=== PATIENT | male | born 1995 | race Caucasian/White ===

== ENCOUNTER 2024-08-09 11:22 | Emergency (ER) | payer MEDICARE ==
[~2024-08-09] VITALS: Ht 188 cm; Wt 79.4 kg
[2024-08-09 11:43] LABS: BASOPHILS % (AUTO) 0.7 % (0.0-2.0); EOSINOPHILS # (AUTO) 0.2 K/uL (0.0-0.7); EOSINOPHILS % (AUTO) 3.4 % (0.0-7.0); HEMATOCRIT 40.6 % (36.7-47.1); LYMPHOCYTES # (AUTO) 2.1 K/uL (0.8-4.8); MEAN CORPUSCULAR HEMOGLOBIN 31.5 uug (23.8-33.4); MEAN CORPUSCULAR HGB CONC 35 g/dL (32.5-36.3); MONOCYTES # (AUTO) 0.3 K/uL (0.1-1.30); MONOCYTES % (AUTO) 4.9 % (0.0-11.0); NEUTROPHILS # (AUTO) 3.6 K/uL (1.8-8.9); PLATELET COUNT (AUTO) 257 K/uL (152-348); RED BLOOD CELL COUNT(AUTO) 4.46 MIL/uL (4.06-5.63); RED CELL DISTRIBUTION WIDTH 13.1 % (12.1-16.2); WHITE BLOOD COUNT (AUTO) 6.3 K/uL (3.6-10.2)
[2024-08-09 11:46] LABS: DIFFERENTIAL COMMENT 1
[2024-08-09] MEDS ORDERED: LIDOCAINE 2%-EPI 1:100,000 20 ML VIAL ONE (11:54)
[2024-08-09] MEDS ORDERED: LIDOCAINE 1%-EPI 1:100,000 20 ML VIAL ONE (11:55)
[2024-08-09 11:56] LABS: ALANINE AMINOTRANSFERASE 23 U/L (16-63); ALBUMIN 4.2 g/dL (3.4-5.0); ALKALINE PHOSPHATASE 53 U/L (50-136); ASPARTATE AMINOTRANSFERASE 5 U/L (15-37); BILIRUBIN,DIRECT 0.1 mg/dL (0.0-0.2); BILIRUBIN,TOTAL 0.5 mg/dL (0.2-1.0); CALCIUM 8.9 mg/dL (8.5-10.1); CARBON DIOXIDE 28 mmol/L (21-32); CHLORIDE 105 mmol/L (98-107); CREATININE 1.2 mg/dL (0.6-1.3); GLUCOSE 170 mg/dL (74-106); POTASSIUM 3.9 mmol/L (3.5-5.1); SODIUM SERUM 143 mmol/L (136-145); TOTAL PROTEIN, SERUM 7.2 g/dL (6.4-8.2); UREA NITROGEN, BLOOD 14 mg/dL (7-18)
[2024-08-09 12:00] LABS: ETHANOL < 3 MG/DL (0-10)
[2024-08-09] MEDS: LIDOCAINE 1%-EPI 1:100,000 20 ML VIAL IJ ONE (12:32)
[2024-08-09 12:56] LABS: *BILIRUBIN,URIN NEGATIVE (NEGATIVE); *BLOOD, URINE NEGATIVE (NEGATIVE); *CLARITY,URINE CLEAR (CLEAR); *COLOR,URINE YELLOW (YELLOW); *KETONES,URINE NEGATIVE (NEGATIVE); *PROTEIN,URINE NEGATIVE (NEGATIVE); *UROBILINOGEN,URINE 0.2 E.U./dl (NORMAL); LEUKOCYTE ESTERASE ,URINE NEGATIVE (NEGATIVE); NITRITE, URINE NEGATIVE (NEGATIVE); PH,URINE 6.5 (5.0-8.0); UGLUCOSE NEGATIVE (NEGATIVE)
[2024-08-09 13:19] LABS: *AMPHETAMINE, URINE NEGATIVE (NEGATIVE); *BARBITURATE, URINE NEGATIVE (NEGATIVE); *BENZODIAZEPINE, URINE NEGATIVE (NEGATIVE); *CANNABINOID, URINE POSITIVE (NEGATIVE); *COCCAINE, URINE NEGATIVE (NEGATIVE); *OPIATE, URINE NEGATIVE (NEGATIVE); *PHENCYCLIDINE SCREEN,URINE NEGATIVE (NEGATIVE); FENTANYL, URINE NEGATIVE (NEGATIVE)
[2024-08-09] MEDS ORDERED: ACETAMINOPHEN 500 MG TABLET ONE (17:28)
[2024-08-09] MEDS: ACETAMINOPHEN 500 MG TABLET PO ONE (17:29)
[2024-08-09 19:20] VITALS: BP 134/73; TEMP 98.8; O2SAT 100
== END 2024-08-09 19:21 | disposition home or self-care (01) ==
LOC: ER 11:22
DX: S11.81XA Laceration without foreign body of other specified part of neck, initial encounter (principal); Z20.822 Contact with and (suspected) exposure to COVID-19; Y33.XXXA Other specified events, undetermined intent, initial encounter; Y93.89 Activity, other specified; Y92.89 Other specified places as the place of occurrence of the external cause; Y99.8 Other external cause status
CPT/HCPCS: 12002; 36415; 80048; 80076; 80307; 80320; 81003; 85025; 87426; 99285; J3490; A4606; A4663; A9150; C1758; G0480

== ENCOUNTER 2024-08-14 08:46 | Emergency (ER) | payer MEDICAID, MEDICARE ==
[~2024-08-14] VITALS: Ht 188 cm; Wt 79.4 kg
[2024-08-14 09:17] VITALS: BP 111/70; O2SAT 97
== END 2024-08-14 09:21 | disposition home or self-care (01) ==
LOC: ER 08:46
DX: L23.1 Allergic contact dermatitis due to adhesives (principal); S11.91XD Laceration without foreign body of unspecified part of neck, subsequent encounter; Z88.7 Allergy status to serum and vaccine; X58.XXXD Exposure to other specified factors, subsequent encounter
CPT/HCPCS: A4606; A4663